=== PATIENT | male | born 1960 | race Caucasian/White ===

== ENCOUNTER 2018-04-25 19:29 | Emergency (ER) | payer OTHER ==
[2018-04-25 19:37] VITALS: BP 130/72; PULSE 83; RESP 18; TEMP 98
--- NOTE | 2018-04-25 19:41 | ED ---
Lower Extremity Injury HPI - General Stated Complaint: L leg pain Time Seen by Provider: 04/25/18 19:32 Source: patient, EMS, RN notes reviewed Mode of arrival: EMS Limitations: no limitations - History of Present Illness Initial Comments: 58-year-old male presents to the emergency Department with chief complaint of left ankle injury. Patient states that he slipped on a patch ice outside. Patient states that he twisted and felt pain in his mid lower leg. Patient denies any head injury no loss conscious. Denies any prior fractures to his left leg. Denies any paresthesias. Patient was splinted by EMS and brought to emergency department. - Related Data Home Medications Medication Instructions Recorded Confirmed Sertraline HCl [Zoloft] 25 mg PO Q48H 04/25/18 04/25/18 Previous Rx's Medication Instructions Recorded Hydrocodone/Acetaminophen [[place] 1 tab PO Q6HR PRN #12 tab 04/25/18 5-325] Allergies Allergy/AdvReac Type Severity Reaction Status Date / Time No Known Allergies Allergy Verified 04/25/18 19:52 Review of Systems ROS Statement: Those systems with pertinent positive or pertinent negative responses have been documented in the HPI. ROS Other: All systems not noted in ROS Statement are negative. Past Medical History Past Medical History: No Reported History History of Any Multi-Drug Resistant Organisms: None Reported Past Surgical History: No Surgical Hx Reported Past Psychological History: Depression Smoking Status: Current every day smoker Past Alcohol Use History: Occasional Past Drug Use History: None Reported General Exam Limitations: no limitations General appearance: alert, in no apparent distress Head exam: Present: atraumatic, normocephalic, normal inspection Neck exam: Present: normal inspection, full ROM. Absent: tenderness, meningismus, lymphadenopathy Respiratory exam: Present: normal lung sounds bilaterally. Absent: respiratory distress, wheezes, rales, rhonchi, stridor Cardiovascular Exam: Present: regular rate, normal rhythm, normal heart sounds. Absent: systolic murmur, diastolic murmur, rubs, gallop, clicks Extremities exam: Present: other (Tenderness to the mid to distal tib-fib on the left, left leg is neurovascularly intact there is no foot tenderness no proximal left leg tenderness) Skin exam: Present: warm, dry, intact, normal color. Absent: rash Course Vital Signs 04/25/18 19:34 Temperature 98.0 F Pulse Rate 83 Respiratory 18 Rate Blood Pressure 130/72 O2 Sat by Pulse 100 Oximetry Procedures - Orthopedic Splinting/Casting Injury #1 Side: left Lower Extremity Injury Location: short leg Lower Extremity Immobilizer: posterior splint, synthetic pre-padded splint Medical Decision Making - Medical Decision Making 58-year-old male presented for left leg injury. Patient has a fracture of his distal tib-fib with mild displacement. Patient was splinted in a short leg neurovascular intact before after procedure. Patient will follow-up with on- call surgeon Dr. Penny return parameters were discussed. Crutches were ordered. Disposition Clinical Impression: Tibia/fibula fracture Disposition: HOME SELF-CARE Condition: Stable Instructions (If sedation given, give patient instructions): Leg Fracture (ED) Additional Instructions: Please return to the Emergency Department if symptoms worsen or any other concerns. Prescriptions: Hydrocodone/Acetaminophen [[place] 5-325] 1 tab PO Q6HR PRN #12 tab PRN Reason: Pain Is patient prescribed a controlled substance at d/c from ED?: Yes When asked, does pt state using other controlled substances?: No If prescribed controlled substance>3 days was MAPS reviewed?: Prescribed <3 Days If opioid is for acute pain is fill amount 7 days or less?: Yes If Rx opioid, was Start Talking consent form obtained?: Yes Referrals: None,Stated [Primary Care Provider] - 1-2 days Scot Penny MD [STAFF PHYSICIAN] - 1-2 days
[2018-04-25] MEDS ORDERED: HYDROcodone/APAP 7.5-325MG 1 EACH TAB PO ONE (20:06)
--- NOTE | 2018-04-25 20:26 | XR ---
EXAMINATION TYPE: XR tibia fibula LT DATE OF EXAM: 04/25/2018 COMPARISON: NONE HISTORY: Leg pain TECHNIQUE: 3 views FINDINGS: There is oblique fracture distal shaft of the tibia. There is displacement up to 1 cm. Ther e is also oblique fracture distal shaft of the fibula without significant displacement. The knee join t appears intact. Ankle mortise is anatomic. IMPRESSION: Distal tibia and fibula shaft acute fractures.
== END 2018-04-25 20:19 | disposition home or self-care (01) ==
LOC: EC 19:29
DX: S82.302A Unspecified fracture of lower end of left tibia, initial encounter for closed fracture (principal); S82.832A Other fracture of upper and lower end of left fibula, initial encounter for closed fracture; F32.9 Major depressive disorder, single episode, unspecified; F17.200 Nicotine dependence, unspecified, uncomplicated; Z79.899 Other long term (current) drug therapy; W00.0XXA Fall on same level due to ice and snow, initial encounter
CPT/HCPCS: 29515; 99283

== ENCOUNTER 2018-05-14 13:31 | Observation (INO) | payer OTHER ==
[2018-05-10 11:56] VITALS: BMI 32.8
[~2018-05-14 13:31] MED LIST: DEXAMETHASONE SOD PHOSPHATE 10 MG/ML 1 ML VIAL IV ONE; HYDROmorphone 0.5 MG/0.5 ML SYRINGE IVP PRN; LIDOCAINE 1% 20 ML VIAL (10MG/ML) FOR IV START INTRADERMA PRN; MIDAZOLAM (PF) 2 MG/2 ML VIAL IV PRN; ONDANSETRON 4 MG/2 ML VIAL IVP ONE; ceFAZolin IN SWFI 2 GM/20 ML SYRINGE IVP ONE; fentaNYL (PF) 50 MCG/ML 2 ML AMP IV PRN
[2018-05-14] MEDS: LACTATED RINGERS 1,000 ML IV SCH ×2 (14:48→21:03)
[2018-05-14] MEDS ORDERED: fentaNYL (PF) 50 MCG/ML 2 ML AMP ONE (15:11)
[2018-05-14] MEDS ORDERED: MIDAZOLAM 2 MG/2 ML VIAL ONE (15:11)
[2018-05-14] MEDS ORDERED: HYDROmorphone (PF) 1 MG/ML ONE (15:11)
[2018-05-14] MEDS ORDERED: PROPOFOL 10 MG/ML 20 ML VIAL IV ONE (15:11)
[2018-05-14] MEDS ORDERED: ceFAZolin 1,000 MG in SODIUM CHLORIDE 0.9% 1,000 ML IRRIGATION ONE (16:16)
[2018-05-14] MEDS ORDERED: LACTATED RINGERS 1,000 ML IV ONE (16:49)
[2018-05-14] MEDS ORDERED: NEOMYCIN-BACITRACIN-POLY OINT 1 APPLIC/EACH PACKET TOPICAL ONE (17:46)
[2018-05-14] MEDS ORDERED: MORPHINE SULFATE 2 MG/ML SYRINGE IV PRN ×2 (19:33)
[2018-05-14] MEDS ORDERED: NALOXONE 0.4 MG/ML 1 ML VIAL IV PRN (19:33)
[2018-05-14] MEDS ORDERED: HYDROcodone/APAP 5-325MG 1 EACH TAB PO PRN (19:33)
[2018-05-14] MEDS ORDERED: ONDANSETRON 4 MG/2 ML VIAL IVP PRN (19:33)
[2018-05-14] MEDS ORDERED: MORPHINE SULFATE 4 MG/ML SYRINGE IV PRN (19:33)
--- NOTE | 2018-05-14 19:48 | P.OP ---
Date of Procedure: 05/14/18 Procedure(s) Performed: PREOPERATIVE DIAGNOSES: 1. Left distal tibial shaft oblique fracture 2. Left distal fibular fracture POSTOPERATIVE DIAGNOSES: 1. Left distal tibial shaft oblique fracture 2. Left distal fibular fracture PROCEDURES PERFORMED: 1. Left distal tibial shaft fracture open reduction and internal fixation using Synthes locking periarticular plate 2. Left distal fibula fracture open reduction and internal fixation using Synthes locking periarticular plate ANESTHESIA: Spinal plus sedation SOFTWARE TRAINER: none COMPLICATIONS: None ESTIMATED BLOOD LOSS: 15 mL. DISPOSITION: To post-anesthesia care unit INDICATIONS: Mr. Ngo is a 58 year old male with a history of smoking who fell on the ice at home and sustained a displaced oblique fracture of the distal tibia and fibula on the left side. Patient has been medically cleared for surgery and I have recommended surgery based on the fact that this is an unstable fracture which requires fixation. I have explained the procedure to the patient in detail and also potential risks and complications. I have explained these risks as being inclusive of, but not limited to: Bleeding, infection, scarring, discomfort, blood vessel and/or nerve damage, malunion, nonunion, etc. as documented in my preoperative note. The consent form has been signed. PROCEDURE: After appropriate consent was obtained, the patient was taken to the operating room placed in the supine position. Anesthesia was initiated, and after confirmation of adequate anesthesia, the patient was carefully positioned in the supine position. Care was taken to make sure that all pressure points were adequately padded. Prepping and draping were completed in the usual aseptic fashion using ChloraPrep. Timeout was called, confirming patient identity, side, procedure, and administration of antibiotics. Attention was directed to the tibial shaft fracture. An incision was created over the medial malleolus for a distance of approximately 3 inches. It was carried down just through skin and then bluntly through subcutaneous tissues down to periosteum. Care was taken to identify and protect the visualized branches of the saphenous nerve and greater saphenous vein. Subsequently, the alignment of the tibia was assessed with C-arm imaging in both AP and lateral planes. Careful realignment of the tibial fracture was performed but due to the extent of the comminution the comminuted fragments within the distal shaft just above the metaphysis remained slightly displaced. A bridge plating technique was then performed. A 10 hole periarticular tibial plate was selected and inserted along the medial aspect of the tibia in submuscular fashion. The proximal portion of the plate was centered on the bone and pinned into position through a 2 inch incision that we needed anyway for placement of the proximal screws. Varus valgus and anterior posterior alignment was assessed C-arm imaging and adjusted to reach as anatomic a reduction as possible. Subsequently, the plate was noted to be directly against the bone. Approximately 6-7 locking screws were placed in the distal fragment and 4 non- locking screws with bicortical purchase were placed in the proximal fragment. There was acceptable alignment of the bone and good stability of the hardware with flexion and extension of the ankle and gentle movement of the leg. An incision on the lateral part of the leg was performed, centered over the distal fibular fracture site. It was carried down through skin into subcu tissues and just to fascia. Blunt dissection was performed through subcutaneous tissues and fascia was split under direct visualization with care to identify and protect the superficial peroneal nerve. The fascia was split just anterior to the peroneal muscles, and the peroneal muscles were retracted posteriorly. This afforded good visualization of the fracture. Fracture was mildly displaced but able to be easily reduced. Bone quality was poor. As little stripping of the soft tissues from the bone was performed in order to maintain blood supply of the fragments. Rotational alignment and length of the fibula was assessed with C-arm imaging. The fracture was reduced preliminarily for assessment of length and then a locking periarticular plate from [employer] was selected and applied to the lateral aspect of the fibula. Plate clamps were then used to secure the bone to the plate. The plate and reduction was adjusted as necessary to accomplish good rotational alignment and length jain. After this had been established, 1 nonlocking screw was used to bring the plate to the bone securely and the remainder of the screws used were locking. 2.7 mm locking screws were then used to secure the plate to the bone, using the fixed angle guides to place locking screws in good positions on the distal fibula distal to the fracture site. 3.5 mm bicortical screws were used proximally. Tourniquet was then deflated and further hemostasis was obtained using electrocautery. Next, the area was thoroughly irrigated with normal saline and closure was performed of the fascia using 0 Vicryl suture followed by 2-0 Vicryl suture in subcutaneous tissues. The incisions were then thoroughly irrigated. Closure of the medial wounds was performed using 2-0 Vicryl suture in the subcu tissues and 3-0 nylon suture for the distal medial wound in horizontal mattress fashion. Vianney were used for the other wounds. Capillary refill was excellent of the toes and it was noted that the patient was moving toes at the end of the case due to resolution of the spinal anesthetic. Sterile dressings were then applied to the wounds and a well-padded well molded posterior short leg splint was applied with the ankle in neutral. Patient tolerated the procedure well and taken to recovery room in stable condition. Sponge and needle counts were correct.
[2018-05-14] MEDS: HYDROcodone/APAP 5-325MG 1 EACH TAB PO PRN (20:54)
[2018-05-14] MEDS ORDERED: SENNOSIDES-DOCUSATE SODIUM 1 EACH TAB PO SCH (21:00)
[2018-05-14] MEDS: MORPHINE SULFATE 4 MG/ML SYRINGE IV PRN (22:48)
[2018-05-15] MEDS: ceFAZolin IN SWFI 2 GM/20 ML SYRINGE IVP SCH ×2 (00:20→08:20)
[2018-05-15] MEDS: MORPHINE SULFATE 4 MG/ML SYRINGE IV PRN ×3 (01:26→07:30)
[2018-05-15] MEDS: HYDROcodone/APAP 5-325MG 1 EACH TAB PO PRN (02:23)
[2018-05-15] MEDS: HYDROcodone/APAP 10-325MG 1 EACH TAB PO PRN ×3 (05:27→14:54)
--- NOTE | 2018-05-15 07:14 | FL ---
EXAMINATION TYPE: FL guidance operating room, XR tibia fibula LT DATE OF EXAM: 05/14/2018 CLINICAL HISTORY: Fluoroscopic guidance for surgical fixation of a distal tibia/fibular fracture on t he left TECHNIQUE: Fluoroscopy. COMPARISON: None. FINDINGS: Fluoroscopic guidance was provided during procedure performed by Dr. Penny. A total of 57 seconds of fluoroscopic time was utilized during the procedure and 5 spot images was acquired. IMPRESSION: As Above.
[2018-05-15] MEDS: LACTATED RINGERS 1,000 ML IV SCH (07:29)
[2018-05-15 07:53] VITALS: BP 167/71; PULSE 75; RESP 12; TEMP 98.9
[2018-05-15] MEDS ORDERED: ASPIRIN 81 MG PO SCH (09:00)
[2018-05-15] MEDS ORDERED: MULTIVITAMINS, THERA 1 EACH TAB PO SCH (12:00)
--- NOTE | 2018-05-15 12:02 | P.DS ---
Providers Date of admission: 05/15/18 03:12 Expected date of discharge: 05/15/18 Attending physician: Scot Penny Primary care physician: Noemí Clarke - Discharge Diagnosis(es) (1) Tibia/fibula fracture Current Visit: Yes Status: Acute Hospital Course: This is a 58-year-old male last seen in our office with complaints of a fall and left ankle pain. He was found to have displaced fractures to the distal tibia and fibula. After discussion and consideration, the patient elected to proceed with an ORIF of the left distal tibia and fibula. Patient was seen preoperatively, and medically cleared for surgery by his primary care physician. Patient was admitted to [facility] underwent an ORIF of the left distal tibia and fibula by Dr. Penny. The procedure was performed without complications or sequelae. The patient is seen and evaluated at bedside today. Pain is well-controlled at this time. Patient has no new complaints today and denies any fevers, chills, nausea, vomiting, or shortness of breath. Vital signs are stable. Dressing and splint are clean dry and intact. He is able to wiggle his toes without difficulty. Patient's left lower extremity is neurovascularly intact. The patient is orthopedically stable for discharge today. Patient Condition at Discharge: Stable Plan - Discharge Summary Discharge Rx Participant: No New Discharge Prescriptions: New HYDROcodone/APAP 10-325MG [[place] 10-325] 1 - 2 tab PO Q4-6H PRN #40 tab PRN Reason: Pain Sennosides-Docusate Sodium [Senokot-S] 2 tab PO DAILY #30 tablet Continue Aspirin 325 mg PO DAILY Sertraline [Zoloft] 50 mg PO Q48H Niacin 1,500 mg PO DAILY Discontinued Hydrocodone/Acetaminophen [[place] 5-325] 1 tab PO Q6HR PRN #12 tab PRN Reason: Pain Discharge Medication List Aspirin 325 mg PO DAILY 05/10/18 [History] Niacin 1,500 mg PO DAILY 05/10/18 [History] Sertraline [Zoloft] 50 mg PO Q48H 05/10/18 [History] HYDROcodone/APAP 10-325MG [[place] 10-325] 1 - 2 tab PO Q4-6H PRN #40 tab [Rx] Sennosides-Docusate Sodium [Senokot-S] 2 tab PO DAILY #30 tablet 05/15/18 [Rx] Follow up Appointment(s)/Referral(s): Shalonda Heredia PAC [PHYSICIAN [facility]] - 05/25/18 9:15 am Patient Instructions/Handouts: ORIF of an Ankle Fracture (DC) Activity/Diet/Wound Care/Special Instructions: Keep splint and dressing clean, dry, and intact Elevate and ice Non-weightbearing on the left leg Follow up with Shalonda Heredia PA-C in 10 days. Call [facility] with any questions or concerns, Discharge Disposition: HOME SELF-CARE
--- NOTE | 2018-05-15 18:33 | CONS ---
CONSULTATION DATE OF SERVICE: 05/15/2018 REASON FOR CONSULTATION: Advice regarding depression and other medical issues, requested by Orthopedic Surgery. HISTORY OF PRESENT ILLNESS: This 58-year-old gentleman with a past history of depression, history of nicotine dependence, migraines, was admitted with a fall and a trimalleolar fracture. The patient underwent left distal tibial shaft fracture ORIF and tibia fibular fracture ORIF by Dr. Penny. The patient tolerated the procedure well. The patient is being closely monitored. There is no history of any fevers, rigors. No history of headache chest pain, palpitations, hematochezia or melena at this time. PAST MEDICAL HISTORY: 1. Depression. 2. History of migraine. 3. History of nicotine dependence. HOME MEDICATIONS: 1. Zoloft 50 mg q.48 hours. 2. Niacin 1500 mg p.o. daily. 3. Aspirin 325 mg p.o. daily. 4. Senokot-S two tablets p.o. daily. 5. [place] 10 mg one to two tablets q.4-6 p.r.n. ALLERGIES: NONE. FAMILY HISTORY: History of cancer of kidney, bladder and lung in the family. SOCIAL HISTORY: History of smoking. Occasional alcohol intake. REVIEW OF SYSTEMS: ENT: No diminished hearing. No diminished vision. CARDIOVASCULAR SYSTEM: No angina, palpitations. RESPIRATORY SYSTEM: No cough, hemoptysis. GI: No nausea, vomiting. : No dysuria or retention. NERVOUS SYSTEM: No numbness, weakness. ALLERGY/IMMUNOLOGY: No asthma, hayfever. MUSCULOSKELETAL: As mentioned earlier. HEMATOLOGY/ONCOLOGY: No history of anemia. ENDOCRINE: No history of diabetes, hypothyroidism. CONSTITUTIONAL: As mentioned earlier. DERMATOLOGY: Negative. RHEUMATOLOGY: Negative. PSYCHIATRY: As mentioned earlier. MUSCULOSKELETAL: As mentioned earlier. PHYSICAL EXAMINATION: Patient alert and oriented x3. Pulse 75, blood pressure 167/71, respiration 12, temperature 98.9, pulse ox 96% on room air. HEENT: Conjunctivae normal. NECK: No jugular venous distention. CARDIOVASCULAR SYSTEM: S1, S2 muffled. RESPIRATORY SYSTEM: Breath sounds diminished at the bases. No rhonchi. No crackles. ABDOMEN: Soft, non-tender. LEGS: Status post left ankle surgery. NERVOUS SYSTEM: No focal deficit. LABS: Not available. ASSESSMENT: 1. Status post left ankle open reduction internal fixation for trimalleolar fracture. 2. History of migraine. 3. History of psoriasis. 4. History of depression. 5. History of nicotine dependence. 6. Hypertension. RECOMMENDATIONS AND DISCUSSION: In this 58-year-old gentleman who presented with multiple complex medical issues , we will monitor the patient closely, continue the current medications, continue with symptomatic treatment. Monitor blood pressure closely. I would also recommend close followup with the primary physician, Dr. Clarke, in the outpatient setting regarding above-mentioned medical issues. Otherwise, closely follow with Orthopedic Surgery. DVT prophylaxis. Further recommendations to follow. Smoking cessation also was advised. MMODL / IJN: [id number] / MTDD
== END 2018-05-15 17:20 | disposition home or self-care (01) ==
LOC: OR 13:31 → 4SSUR 19:20 → OR 05-15 02:52 → 4SSUR 05-15 03:12
PROVIDERS: ADMIT Orthopaedic Surgery; ATTEND Orthopaedic Surgery
DX: S82.232A Displaced oblique fracture of shaft of left tibia, initial encounter for closed fracture (principal); S82.432A Displaced oblique fracture of shaft of left fibula, initial encounter for closed fracture; W00.0XXA Fall on same level due to ice and snow, initial encounter; Y92.009 Unspecified place in unspecified non-institutional (private) residence as the place of occurrence of the external cause; F17.210 Nicotine dependence, cigarettes, uncomplicated; F32.9 Major depressive disorder, single episode, unspecified; I10 Essential (primary) hypertension; Z86.69 Personal history of other diseases of the nervous system and sense organs; Z87.2 Personal history of diseases of the skin and subcutaneous tissue; Z79.82 Long term (current) use of aspirin; Z79.899 Other long term (current) drug therapy; Z80.51 Family history of malignant neoplasm of kidney; Z80.52 Family history of malignant neoplasm of bladder; Z80.1 Family history of malignant neoplasm of trachea, bronchus and lung
CPT/HCPCS: 73590; 27758; G0378; C1713; J2250; J2270 ×2; J1100; J2405; J0690 ×3; J3010; J1170; J2704